=== PATIENT | male | born 2000 | race Caucasian/White ===

== ENCOUNTER 2020-11-01 13:28 | Emergency (ER) | payer OTHER, SELFPAY ==
[~2020-11-01] VITALS: Ht 165.1 cm; Wt 68.0 kg
[2020-11-01 13:30] VITALS: Ht 165.1 cm; Wt 68.0 kg
[2020-11-01 16:10] VITALS: BP 128/75
== END 2020-11-01 16:10 | disposition home or self-care (01) ==
LOC: ED 13:28
DX: G43.909 Migraine, unspecified, not intractable, without status migrainosus (principal); R05 Cough; J02.9 Acute pharyngitis, unspecified; Z20.828 Contact with and (suspected) exposure to other viral communicable diseases
CPT/HCPCS: U0003